=== PATIENT | female | born 1985 ===

== ENCOUNTER 2020-04-16 03:15 | Inpatient (IN) | payer OTHER ==
[2020-04-16] MEDS ORDERED: LACTATED RINGERS 1,000 ML ONE (03:20)
[2020-04-16] MEDS ORDERED: OXYTOCIN 20 UNIT/1000ML DRIP 20,000 MILLIUNITS/1,000 ML BAG IV ONE (03:20)
[2020-04-16] MEDS ORDERED: ePHEDrine SULFATE 50 MG/1 ML INJ IV PRN (03:27)
[2020-04-16] MEDS ORDERED: TERBUTALINE 1 MG/1 ML INJ IVP PRN (03:27)
[2020-04-16] MEDS ORDERED: TERBUTALINE 1 MG/1 ML INJ SUB-Q PRN (03:27)
[2020-04-16] MEDS ORDERED: MINERAL OIL 30 ML ORAL LIQD PO PRN (03:27)
[2020-04-16] MEDS ORDERED: fentaNYL 100 MCG/2 ML INJ IV PRN (03:27)
[2020-04-16] MEDS ORDERED: LIDOCAINE (2%) 20 MG/1 ML VIAL 20 ML MDV INFILTRATI ONE (03:27)
[2020-04-16] MEDS: OXYTOCIN 20 UNIT/1000ML DRIP 20 UNITS/1,000 ML BAG IV SCH ×2 (03:51→05:40)
[2020-04-16] MEDS ORDERED: PROMETHAZINE 25 MG TAB PO PRN (03:55)
[2020-04-16] MEDS ORDERED: ACETAMINOPHEN 325 MG TAB PO PRN (03:55)
[2020-04-16] MEDS ORDERED: WITCH HAZEL/ GLYCERIN PAD TP PRN (03:55)
[2020-04-16] MEDS ORDERED: ONDANSETRON 4 MG/2 ML INJ IV PRN (03:55)
[2020-04-16] MEDS ORDERED: PROMETHAZINE 25 MG RECT SUPP PR PRN (03:55)
[2020-04-16] MEDS ORDERED: diphenhydrAMINE 25 MG CAP PO PRN (03:55)
[2020-04-16] MEDS ORDERED: LANOLIN/ZINC/DIMETHICONE (LANSINOH) 7 GM TP PRN (03:55)
[2020-04-16] MEDS ORDERED: MAGNESIUM HYDROXIDE (MOM) ORAL LIQD UDC PO PRN (03:55)
[2020-04-16 03:57] LABS: Hematocrit 41.6 % (30.3-42.9); Hemoglobin 13.7 gm/dl (10.1-14.3); Mean Corpuscular HGB Conc 33 % (30-34); Mean Corpuscular Volume 93 fl (79-97); Platelet Count 152 K/mm3 (140-440); Red Blood Count 4.48 M/mm3 (3.65-5.03); Red Cell Distribution Width 16.3 % (13.2-15.2)
--- NOTE | 2020-04-16 03:59 | History and Physical Report ---
History of Present Illness Date of examination: 04/16/20 Chief complaint: active labor History of present illness: active labor 10cm,+2 on admission PNR in chart Medications and Allergies Allergies Allergy/AdvReac Type Severity Reaction Status Date / Time No Known Allergies Allergy Verified 04/16/20 03:34 Active Meds: Active Medications Ephedrine Sulfate (Ephedrine Sulfate) 10 mg IV Q2M PRN PRN Reason: Hypotension Fentanyl (Sublimaze) 100 mcg IV Q2H PRN PRN Reason: Pain,Severe (7-10) LABOR PAIN Oxytocin/Sodium Chloride (Pitocin/Ns 20 Unit/1000ml Drip) 20 units in 1,000 mls @ 125 mls/hr IV DIRECT WEN Oxytocin/Sodium Chloride (Pitocin/Ns 30 Unit/500ml) 30 units in 500 mls @ 1 mls/hr IV TITR WEN; Protocol Lactated Ringer's (Lactated Ringers) 1,000 mls @ 125 mls/hr IV DIRECT WEN Mineral Oil (Mineral Oil) 30 ml PO QHS PRN PRN Reason: Constipation Terbutaline Sulfate (Brethine) 0.25 mg SUB-Q ONCE PRN PRN Reason: Hyperstimulation/Hypertonicity Terbutaline Sulfate (Brethine) 0.25 mg IVP ONCE PRN PRN Reason: Hyperstimulation/Hypertonicity - Vital Signs Vital signs: Vital Signs Temp Pulse Resp BP 98.7 F 99 H 22 134/68 04/16/20 03:35 04/16/20 03:35 04/16/20 03:35 04/16/20 03:35 Temp Pulse Resp BP Pulse Ox 98.7 F 83 22 134/68 100 04/16/20 03:35 04/16/20 03:43 04/16/20 03:35 04/16/20 03:35 04/16/20 03:43 - Physical Exam Breasts: Positive: deferred Cardiovascular: Regular rate Lungs: Positive: Clear to auscultation Abdomen: Positive: normal appearance, normal bowel sounds Vulva: both: normal Vagina: Positive: normal moisture Deep Tendon Reflex Grade: Normal +2 - Obstetrical FHR: category 1 Uterine Contraction Monitor Mode: External Cervical Dilatation: 10 station: +2 Results Result Diagrams: 04/16/20 03:20 Abnormal lab results 04/16/20 Range/Units 03:20 RDW 16.3 H (13.2-15.2) % All other labs normal. Assessment and Plan expect deja Arenas MD
[2020-04-16] MEDS: HYDROcodone/ACETAMINOPHEN 5-325 MG TAB PO PRN ×2 (04:00→14:31)
[2020-04-16] MEDS ORDERED: LACTATED RINGERS 1,000 ML IV SCH (04:00)
[2020-04-16] MEDS ORDERED: OXYTOCIN DRIP 30 UNITS/500 ML BAG IV SCH (04:00)
--- NOTE | 2020-04-16 04:06 | Procedure Note ---
OB Delivery Note - Delivery Date of Delivery: 04/16/20 Surgeon: RODOLFO HENSON Estimated blood loss: 300cc - Vaginal Delivery position: OA Intrapartum events: none Delivery induction: none Delivery monitor: external FHT, external uterine Route of delivery: Delivery placenta: spontaneous Delivery cord: 3 umbilical vessels Episiotomy: none Delivery laceration: none Delivery comments: precipitous delivery of a viable male over an intact perineum. no nuchal cord, spontaneous cry at delivery. extensive vulvar varicosities. Delivery of the anterior shoulder atraumatic, remainder of the delivery uncomplicated Baby placed on maternal abdomen, delayed cord clamping ~1 minute Cord clamped and cut, cord gasses obtained An intact placenta with three vessel cord delivered spontaneously Firm fundus. EBL 250ml no lacerations. All sponge, needle and instrument counts correctx2 Mom and baby stable to CKristy Henson MD
[2020-04-16] MEDS: DOCUSATE SODIUM 100 MG CAP PO SCH (14:33)
[2020-04-16 18:30] LABS: Hematocrit 37.1 % (30.3-42.9); Hemoglobin 12.2 gm/dl (10.1-14.3)
[2020-04-17] MEDS: DOCUSATE SODIUM 100 MG CAP PO SCH ×2 (00:11→13:00)
[2020-04-17] MEDS: IBUPROFEN 600 MG TAB PO SCH ×4 (00:12→13:00)
--- NOTE | 2020-04-17 14:19 | Progress Note ---
Assessment and Plan A: PP Day #1 Stable P: Follow Routine Orders D/C Home per patient request RTO in 6 Weeks Subjective - Subjective Date of service: 04/17/20 Patient reports: appetite normal, voiding normally, pain well controlled, flatus , bowel movement, ambulating normally : doing well, bottle feeding Objective - Vital Signs Latest vital signs: Vital Signs Temp Pulse Resp BP BP Pulse Ox 04/17/20 07:39 97.5 F L 65 18 106/57 94 04/17/20 06:06 16 04/17/20 00:12 16 04/17/20 00:00 98.6 F 71 16 114/72 04/16/20 19:30 98.6 F 74 18 121/74 04/16/20 15:55 97.8 F 20 109/65 Intake and Output 04/16/20 04/17/20 04/17/20 22:59 06:59 14:59 Intake Total 980 600 Balance 980 600 Intake: Oral 680 Intake, Free Water 300 600 Other: Total, Intake Amount 240 Voiding Method Toilet # Voids 1 Void 1 - Exam Breasts: Present: normal Cardiovascular: Present: Regular rate Lungs: Present: Clear to auscultation, Normal air movement Abdomen: Present: normal appearance, soft, normal bowel sounds Uterus: Present: normal, firm, fundal height below umbilicus Extremities: Present: normal
--- NOTE | 2020-04-17 14:22 | Discharge Summary ---
Providers - Providers Date of Admission: 04/16/20 03:58 Date of discharge: 04/18/20 Attending physician: RODOLFO HENSON MD Primary care physician: RODOLFO HENSON MD Hospitalization Reason for admission: active labor Delivery: Episiotomy: none Laceration: none Other procedures: none complications: none Discharge diagnosis: IUP at term delivered baby: male Condition at discharge: Good Disposition: DC-01 TO HOME OR SELFCARE Plan - Provider Discharge Summary Activity: routine, no sex for 6 weeks, no heavy lifting 4 weeks, no strenuous exercise Diet: routine Instructions: routine Additional instructions: [] Smoking cessation referral if applicable(refer to patient education folder for contact #) [] Refer to [facility] Booklet Call your doctor immediately for: * Fever > 100.5 * Heavy vaginal bleeding ( >1 pad per hour) * Severe persistent headache * Shortness of breath * Reddened, hot, painful area to leg or breast * Drainage or odor from incision. * Keep incision clean and dry at all times and follow doctor's instructions regarding bathing/showering - Follow up plan Follow up: RODOLFO HENSON MD [Primary Care Provider] - 6 Weeks
[2020-04-17 16:49] VITALS: BP 125/84
== END 2020-04-17 16:40 | disposition home or self-care (01) | DRG 807 ==
LOC: TRG 03:15 → APU 03:16 → TRG 03:54 → APU 03:58 → LD 04:22 → OB 06:11
PROVIDERS: ADMIT Obstetrics & Gynecology; ATTEND Obstetrics & Gynecology
PROC: 10E0XZZ Delivery of Products of Conception, External Approach (ICD-10-PCS; principal; 2020-04-16)
DX: O62.3 Precipitate labor (principal); Z37.0 Single live birth; Z3A.37 37 weeks gestation of pregnancy
CPT/HCPCS: 36415; 85014; 85018; 85027; 86850; 86900; 86901; G0378; J2590; J7120